=== PATIENT | female | born 1980 | race Caucasian/White ===

== ENCOUNTER → 2018-01-29 | Outpatient (CLI) | payer BC ==
--- NOTE | 2018-01-30 09:06 | RADIOLOGY IMAGING REPORT ---
FACILITY: [facility] PATIENT NAME: MARILYN RAZA : [id number] MR: [id number] V: [id number] EXAM DATE: [id number] ORDERING PHYSICIAN: DHARMESH FENG TECHNOLOGIST: Catalina Pollock PROCEDURE:BILATERAL DIAGNOSTIC DIGITAL MAMMOGRAM WITH CAD ASSISTED INTERPRETATION & 3D TOMOSYNTHESIS COMPARISON:None. INDICATIONS:LT BREAST MASS FINDINGS: The breast tissue is heterogeneously dense bilaterally. There is no demonstration of malignant appearing mass, malignant appearing calcifications or other secondary sign of malignancy in either breast. No sonographic correlate could be identified to account for patient's palpable findings in the 7 o'clock position of the Left breast therefore clinical follow-up recommended. DIAGNOSTIC CATEGORY 2--BENIGN FINDING. RECOMMENDATIONS: CLINICAL EVALUATION. IMPRESSION: BIRADS 2: Benign finding. No significant abnormality identified in the breasts. Specifically no abnormality identified to account for patient's palpable findings in the 7 o'clock position of the Left breast therefore clinical follow-up recommended. Of note a negative mammogram or Ultrasound report should not preclude biopsy of the clinically suspicious lesion. Dictated by: Erica Giang M.D. on 01/29/2018 at 16:22 Transcribed by: JUSTINA on 01/30/2018 at 9:01 Approved by: Erica Giang M.D. on 01/30/2018 at 9:05 [facility]
--- NOTE | 2018-01-30 17:29 | RADIOLOGY IMAGING REPORT ---
[place] [facility] [place] NAME: MARILYN RAZA : [id number] MR: [id number] V: [id number] EXAM DATE: [id number] ORDERING PHYSICIAN: DHARMESH FENG TECHNOLOGIST: Deepika Keys RDMS PROCEDURE:US LEFT BREAST COMPARISON:None. INDICATIONS:Palpable lump Left breast approximate 7 o'clock position. FINDINGS: The Left breast was imaged from the 5-9 o'clock positions demonstrating no sonographic abnormality therefore clinical follow-up recommended for patient's palpable finding in the 7 o'clock position of the Left breast. DIAGNOSTIC CATEGORY 2--BENIGN FINDING. RECOMMENDATIONS: CLINICAL EVALUATION. IMPRESSION: BIRADS 2: Benign finding. No sonographic abnormality identified to account for patient's palpable lump in the 7 o'clock position of the Left breast therefore clinical follow-up recommended. Of note a negative mammogram or Ultrasound report should not preclude biopsy of the clinically suspicious lesion. Dictated by: Erica Giang M.D. on 01/29/2018 at 16:20 Transcribed by: JUSTINA on 01/30/2018 at 9:59 Approved by: Erica Giang M.D. on 01/30/2018 at 17:28 [facility]
== END ==
LOC: US 09:33
PROVIDERS: ATTEND Nurse Practitioner
DX: N63.24 Unspecified lump in the left breast, lower inner quadrant (principal)
CPT/HCPCS: 77062; 77066; 81025

== ENCOUNTER → 2018-06-10 | Outpatient (CLI) | payer BC ==
[~2018-06-10] MED LIST: FLU60SYR36 IM; PREN-127 PO
[2018-06-10 12:42] LABS: PLATELET COUNT, AUTOMATED 227 K/uL (150-450)
== END ==
LOC: LAB 10:52
PROVIDERS: ATTEND Obstetrics & Gynecology
DX: O09.519 Supervision of elderly primigravida, unspecified trimester (principal)
CPT/HCPCS: 81001; 85025; 86592; 86703; 86762; 86850; 86900; 86901; 87088; 87340

== ENCOUNTER → 2018-06-18 | Outpatient (CLI) | payer BC | LOC: LAB 07:54 | PROVIDERS: ATTEND Obstetrics & Gynecology | DX: Z11.3 Encounter for screening for infections with a predominantly sexual mode of transmission (principal); Z11.8 Encounter for screening for other infectious and parasitic diseases | CPT/HCPCS: 87491; 87591 ==

== ENCOUNTER → 2018-08-29 | Outpatient (CLI) | payer BC ==
--- NOTE | 2018-08-29 14:50 | RADIOLOGY IMAGING REPORT ---
FACILITY: [facility] [place] PATIENT NAME: Zoe Kennedy : 1980 MR: [id number] V: [id number] EXAM DATE: ORDERING PHYSICIAN: MCKINLEY GAVIN TECHNOLOGIST: Location: [facility] Patient: Zoe Kennedy : 1980 Visit/Account:[id number] Date of Sevice: 08/29/2018 [facility] [place] ANATOMICAL SURVEY HISTORY: Anatomical survey COMPARISON: 06/18/2018 FINDINGS: Intrauterine gestations: 1 presentation: Variable heart rate: 153 bpm Amniotic fluid volume: ROSS 11.2 cm; Largest amniotic fluid pocket 3.1 cm Placenta: Anterior left lateral No placenta previa or retroplacental hemorrhage. Uterus: Gravid, otherwise normal Maternal adnexa: Negative Cervix: Closed Gestational Parameters: BPD: 4.9 cm; 21 weeks/ 0 days/58 percentile HC: 18.3 cm; 20 weeks/ 5 days/41st percentile AC: 15.9 cm; 21 weeks/ 1 days/55th percentile FL: 0.6 cm; 21 weeks/ 4 days/49th percentile Average ultrasound age (AUA): 21 weeks/ 1 days Estimated weight (EFW): 406 grams +/- 60 grams fetus is in the 72nd percentile based on LMP Anatomic Survey: Intracranial structures, 4-chamber heart, stomach, kidneys, urinary bladder, spine, 3-vessel cord and cord insertion are unremarkable. Two upper and two lower extremities visualized. IMPRESSION: 1. IUP of 21 weeks one day. DAO of 01/08/2019. This correlates three days ahead of the LMP DAO of . Report Dictated By: Dave Chicas MD at 08/29/2018 2:30 PM Report E-Signed By: Dave Chicas MD at 08/29/2018 2:46 PM WSN:[id number]
== END ==
LOC: RAD 10:56
PROVIDERS: ATTEND Obstetrics & Gynecology
DX: Z02.9 Encounter for administrative examinations, unspecified (principal)

== ENCOUNTER → 2018-10-23 | Outpatient (CLI) | payer BC ==
[~2018-10-23] MED LIST changes: +DIPH0.5S2 IM
[2018-10-23 15:58] LABS: PLATELET COUNT, AUTOMATED 204 K/uL (150-450)
== END ==
LOC: LAB 14:25
PROVIDERS: ATTEND Advanced Practice Midwife
DX: Z34.82 Encounter for supervision of other normal pregnancy, second trimester (principal)
CPT/HCPCS: 36415; 82950; 85025